=== PATIENT | male | born 1940 | race Caucasian/White ===

== ENCOUNTER 2017-10-29 10:35 | Emergency (ER) | payer MEDICARE, OTHER ==
[~2017-10-29] VITALS: Ht 180.3 cm; Wt 94.5 kg
[~2017-10-29 10:35] MED LIST: ALBU6.7H INH
[2017-10-29] MEDS ORDERED: LIDOcaine 1.5% w/epinephrine 1:200,000 5ml ampul IJ ONE (11:55)
[2017-10-29] MEDS ORDERED: TETanus/Pertussis (Acell)/Diphther VAC/PF (Tdap-Adult) 0.5ml syringe IM ONE (11:55)
[2017-10-29] MEDS ORDERED: HYDROcodone/acetaminophen 10/325mg tab PO ONE (11:55)
[2017-10-29] MEDS ORDERED: cephalexin 500mg capsule PO ONE (12:50)
[2017-10-29] MEDS ORDERED: CEPH-572 PO (14:14)
[2017-10-29 14:24] VITALS: BP 125/56
== END 2017-10-29 14:28 | disposition home or self-care (01) ==
LOC: ER 10:35
DX: S01.02XA Laceration with foreign body of scalp, initial encounter (principal); M54.2 Cervicalgia; G89.29 Other chronic pain; Z98.890 Other specified postprocedural states; Z79.899 Other long term (current) drug therapy; W14.XXXA Fall from tree, initial encounter; Y93.89 Activity, other specified; Y92.89 Other specified places as the place of occurrence of the external cause; Y99.8 Other external cause status
CPT/HCPCS: 12034; 70450; 72125; 90471; 90715; 99284; A6449; J3490

== ENCOUNTER 2018-08-27 07:48 | Inpatient (IN) | payer MEDICARE, OTHER | END 2018-08-30 11:45 | disposition home or self-care (01) | LOC: ORTHO 4S 08-28 02:29 → ER 07:48 → ORTHO 4S 11:47 | DX: A41.50 Gram-negative sepsis, unspecified (principal); G93.41 Metabolic encephalopathy ==

== ENCOUNTER 2022-04-06 07:48 | Emergency (ER) | payer OTHER, MEDICARE ==
[~2022-04-06] VITALS: Ht 180.3 cm; Wt 100.3 kg
[~2022-04-06 07:48] MED LIST changes: -ALBU6.7H INH; +ASPI-1265 PO; +CHOL400C8 PO; +CYAN25003 PO; +HYDR-4353 PO; +LISI40TA13 PO; +OMEP40CA21 PO; +VENL25TA48 PO
[2022-04-06] MEDS ORDERED: LIDOcaine 1% W/epiNEPHrine 1:100,000 20ml vial SQ ONE (09:25)
[2022-04-06] MEDS ORDERED: ibuprofen tablet 400 MG TABLET PO ONE (10:00)
[2022-04-06] MEDS ORDERED: morphine 4 MG/ML inj SYRINge IM ONE (10:15)
[2022-04-06] MEDS ORDERED: ondansetron 4mg rapidly disintigrating tab PO ONE (10:15)
[2022-04-06 10:28] VITALS: BP 136/95
== END 2022-04-06 10:29 | disposition home or self-care (01) ==
LOC: ER 07:49
DX: S01.81XA Laceration without foreign body of other part of head, initial encounter (principal); S50.11XA Contusion of right forearm, initial encounter; M25.531 Pain in right wrist; W19.XXXA Unspecified fall, initial encounter; Y93.89 Activity, other specified; Y92.89 Other specified places as the place of occurrence of the external cause; Y99.8 Other external cause status
CPT/HCPCS: 12011; 29125; 70450; 71045; 72125; 73090; 96372; 99284; J2270; J7030; A6258; A6446; A6449